=== PATIENT | male | born 1990 | race Caucasian/White ===

== ENCOUNTER 2016-11-03 17:35 | Emergency (ER) | payer OTHER ==
[2016-11-03 18:40] VITALS: BP 143/67
--- NOTE | 2016-11-03 20:22 | RAD ---
INDICATION: Left flank pain and hematuria evaluate for calculi. COMPARISON: There are no prior studies available for comparison. TECHNIQUE: A CT scan of the abdomen and pelvis was performed without intravenous or oral contrast. Contiguous axial sections were obtained from the lung bases through the symphysis pubis. Images were reconstructed in the coronal and sagittal planes. FINDINGS: The lung bases are clear. No pleural effusion is present. The liver and spleen are within normal limits in size without significant focal abnormality on this noncontrast study. No calcified gallstones are seen. The pancreas appears to be within normal limits in size. The adrenal glands and kidneys are normal in size. No renal calculi or hydronephrosis is seen. No ureteral or bladder calculi are seen. The aorta is normal in caliber without significant calcific plaque. No significant enlarged retroperitoneal lymph nodes are seen. The stomach is mildly distended with food debris. The small bowel and colon appear nondistended. The appendix is within normal limits. There is no evidence for diverticulitis or colitis. No free intraperitoneal air or fluid is seen. No significant focal osseous abnormality is seen. IMPRESSION: NO EVIDENCE FOR ACUTE FINDING OR CAUSE FOR THE PATIENT'S ABDOMINAL PAIN IS SEEN.
--- NOTE | 2016-11-03 20:36 | UC ---
Back Pain HPI - HPI Summary HPI Summary: TWO DAYS AGO BEGAN EXPERIENCING LEFT UPPER BACK PAIN, AFTER PLAYING A COMPUTER VIDEO GAME AND TWISTING BODY. NO FEVER. NO PAIN WITH URINATION. NO ABDOMINAL PAIN. NO PAIN WITH URINATION. NO RASHES. NO RECENT TRAUMA. - History of Current Complaint Chief Complaint: UCBackPain Stated Complaint: BACK PAIN Time Seen by Provider: 11/03/16 18:42 Hx Obtained From: Patient Onset/Duration: Sudden Onset, Lasting Days, Still Present Timing: Intermittent, Lasting Days Severity Initially: Moderate Severity Currently: Moderate Back Pain: Is Discrete @ - LEFT MID BACK Character: Dull, Aching, Spasmodic, Stiffness Aggravating: Movement, Lifting, Bending Alleviating: Position Associated Signs And Symptoms: Negative: Swelling, Redness, Bruising, Fever, Weakness, Numbness, Tingling, Abdominal Pain, Flank Pain, Bladder Incontinence, Bowel Incontinence, Weight Loss, Pain with Weight Bearing - Risk Factors AAA Risk Factors: Negative TAD Risk Factors: Negative Cauda Equina Risk Factors: Negative Epidural Abscess Risk Factors: Negative - Allergies/Home Medications Allergies/Adverse Reactions: Allergies Allergy/AdvReac Type Severity Reaction Status Date / Time Latex Allergy Intermediate rash/hives Verified 11/03/16 18:40 PMH/Surg Hx/FS Hx/Imm Hx Previously Healthy: Yes Respiratory History Of: Reports: Asthma - Surgical History Surgical History: Yes Surgery Procedure, Year, and Place: right hand surgery-had box fx with steel plate placed in hand - Family History Known Family History: Negative: Renal Disease - Social History Occupation: Unemployed Lives: With Family Alcohol Use: Occasionally Substance Use Type: None Smoking Status (MU): Heavy Every Day Tobacco Smoker Type: Cigarettes Amount Used/How Often: 1/2 pk daily Length of Time of Smoking/Using Tobacco: ~ 8 years Household Exposure Type: Cigarettes Cessation Counseling: Counseled 3+Min - 10 Min Review of Systems Constitutional: Negative Skin: Negative Eyes: Negative ENT: Negative Respiratory: Negative Cardiovascular: Negative Gastrointestinal: Negative Genitourinary: Negative Motor: Negative Neurovascular: Negative Musculoskeletal: Arthralgia - LEFT MID BACK PAIN, Myalgia - LEFT MID BACK PAIN Neurological: Negative Psychological: Negative All Other Systems Reviewed And Are Negative: Yes Physical Exam Triage Information Reviewed: Yes Appearance: Well-Appearing, Well-Nourished, Pain Distress - MODERATE Vital Signs: Initial Vital Signs Temp 97.9 F 11/03/16 18:36 Pulse 107 11/03/16 18:36 Resp 17 11/03/16 18:36 BP 143/67 11/03/16 18:36 Pulse Ox 98 11/03/16 18:36 Vital Signs Reviewed: Yes Eye Exam: Normal ENT Exam: Normal ENT: Positive: Normal ENT inspection, Hearing grossly normal, Pharynx normal, TMs normal Dental Exam: Normal Neck exam: Normal Neck: Positive: Supple, Nontender, No Lymphadenopathy Respiratory Exam: Normal Respiratory: Positive: Chest non-tender, Lungs clear, Normal breath sounds, No respiratory distress, No accessory muscle use Cardiovascular Exam: Normal Cardiovascular: Positive: RRR, No Murmur, Pulses Normal, Brisk Capillary Refill Abdominal Exam: Normal Abdomen Description: Positive: Nontender, No Organomegaly, Soft, CVA Tenderness (L). Negative: CVA Tenderness (R) Musculoskeletal Exam: Normal Musculoskeletal: Positive: Strength Intact, ROM Intact, No Edema, Other: - NEGATIVE STRAIGHT LEG RAISE TEST Neurological Exam: Normal Neurological: Positive: Alert, Muscle Tone Normal Psychological Exam: Normal Psychological: Positive: Normal Response To Family Skin Exam: Normal Back Pain Course/Dx - Differential Dx/Diagnosis Differential Diagnosis/HQI/PQRI: Fracture, Renal Colic, Strain, Sprain Provider Diagnoses: THORACIC LEFT BACK PAIN Discharge - Discharge Plan Condition: Stable Disposition: HOME Prescriptions: Cyclobenzaprine TAB* [Flexeril 10 MG TAB*] 10 mg PO TID PRN #12 tab PRN Reason: Spasms Patient Education Materials: Muscle Spasm (ED), Thoracic Back Strain (ED) Referrals: Vanesa Pimentel PA [Primary Care Provider] - Additional Instructions: PHYSICAL THERAPY REFERRAL: You have been prescribed physical therapy. Treatments may include stretching, exercise, application of heat or cold, and other modalities. After an injury, PT can reduce swelling and pain. In recovery, PT is used to restore mobility and strength. Your specific treatment goals are: __X___ Reduction of Swelling (EGS, US, ice as needed) __X___ Pain Reduction (EGS, US, ice as needed) ___X__ TENS Pack Fitting and Instruction Wound Hydrotherapy ___X__ Preservation of Mobility ___X__ Nondenominational of Mobility __X___ Strength Nondenominational __X___ Work or Sports Hardening This instruction sheet also serves as your PHYSICAL THERAPY REFERRAL! Please take it with you to the therapist, so he/she will be aware of your diagnosis and treatment plan. You may see the physical therapist of your choice for these treatments, but may wish to check with your insurance to be sure the provider you select is covered. It's important to see the doctor to whom you have been referred for follow up. Images Front/Back of Body, Lg (Angelina): 1 - PAIN HERE
== END 2016-11-03 20:35 | disposition home or self-care (01) ==
LOC: UCCORT 17:35
DX: M54.6 Pain in thoracic spine (principal); J45.909 Unspecified asthma, uncomplicated; F17.210 Nicotine dependence, cigarettes, uncomplicated; Z71.6 Tobacco abuse counseling
CPT/HCPCS: 74176; 81003; 99212; G0463

== ENCOUNTER 2017-11-28 11:43 | Emergency (ER) | payer OTHER ==
[2017-11-28 11:59] VITALS: BP 125/80
[2017-11-28] MEDS ORDERED: Ibuprofen ADULT LIQ* 600 MG/30 ML UDC PO ONE (12:19)
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
--- NOTE | 2017-11-28 12:30 | RAD ---
HISTORY: Trauma, foot pain, first metatarsal pain COMPARISONS: None VIEWS: 3, Frontal, lateral, and oblique views of the left foot FINDINGS: BONE DENSITY: Normal. BONES: There is no displaced fracture. JOINTS: There is no arthropathy. ALIGNMENT: There is no dislocation. SOFT TISSUES: Unremarkable. OTHER FINDINGS: None. IMPRESSION: NO ACUTE OSSEOUS INJURY. IF SYMPTOMS PERSIST, RECOMMEND REPEAT IMAGING.
== END 2017-11-28 12:58 | disposition home or self-care (01) ==
LOC: UCCORT 11:43
DX: S90.32XA Contusion of left foot, initial encounter (principal); W22.8XXA Striking against or struck by other objects, initial encounter; Y92.9 Unspecified place or not applicable; F17.210 Nicotine dependence, cigarettes, uncomplicated
CPT/HCPCS: 99213; A9270-GY; G0463

== ENCOUNTER 2018-01-02 18:17 | Emergency (ER) | payer OTHER ==
[2018-01-02 18:38] VITALS: BP 117/77
[2018-01-02] MEDS ORDERED: Ibuprofen TAB* 600 MG PO ONE (18:54)
--- NOTE | 2018-01-02 18:59 | UC ---
Throat Pain/Nasal Adonis HPI - HPI Summary HPI Summary: ONSET LAST NIGHT OF SORE THROAT, PAIN WITH SWALLOWING, FEVER TMAX 100.7, FATIGUE , CONGESTION AND BODY ACHES. - History of Current Complaint Chief Complaint: UCGeneralIllness Stated Complaint: ST,FEVER,ADONIS,ACHY Time Seen by Provider: 01/02/18 18:33 Hx Obtained From: Patient, Family/Learning Disabled Teacher - Onset/Duration: Gradual Onset, Lasting Days - 1 DAY, Still Present Severity: Moderate Pain Intensity: 6 Pain Scale Used: 0-10 Numeric Cough: None Associated Signs & Symptoms: Positive: Nasal Discharge, Fever - Allergies/Home Medications Allergies/Adverse Reactions: Allergies Allergy/AdvReac Type Severity Reaction Status Date / Time Latex, Natural Rubber Allergy Rash And Verified 11/28/17 12:01 Itching PMH/Surg Hx/FS Hx/Imm Hx Previously Healthy: Yes - Surgical History Surgical History: Yes Surgery Procedure, Year, and Place: right hand surgery-had box fx with steel plate placed in hand - Family History Known Family History: Negative: Hypertension, Renal Disease - Social History Alcohol Use: None Substance Use Type: None Smoking Status (MU): Heavy Every Day Tobacco Smoker Type: Cigarettes Amount Used/How Often: 1PPD Length of Time of Smoking/Using Tobacco: ~ 8 years Household Exposure Type: Cigarettes - Immunization History Vaccination Up to Date: Yes Review of Systems Constitutional: Fever, Chills, Fatigue ENT: Sore Throat, Ear Ache, Nasal Discharge Respiratory: Negative Cardiovascular: Negative Gastrointestinal: Negative All Other Systems Reviewed And Are Negative: Yes Physical Exam Triage Information Reviewed: Yes Appearance: No Pain Distress, Well-Nourished, Ill-Appearing - MILD Vital Signs: Initial Vital Signs Temp 100.3 F 01/02/18 18:33 Pulse 98 01/02/18 18:33 Resp 22 01/02/18 18:33 BP 117/77 01/02/18 18:33 Pulse Ox 98 01/02/18 18:33 Vital Signs Reviewed: Yes Eyes: Positive: Conjunctiva Clear ENT: Positive: Hearing grossly normal, Pharyngeal erythema, TMs normal, Tonsillar swelling, Tonsillar exudate, Hoarse voice Neck: Positive: Supple, Tenderness @ - SPFL CERVICAL LAD, LEFT > RIGHT, Enlarged Nodes @ - SPFL CERVICAL LAD, LEFT > RIGHT Respiratory Exam: Normal Cardiovascular Exam: Normal Abdomen Description: Positive: Soft Musculoskeletal: Positive: No Edema Neurological: Positive: Alert Psychological: Positive: Age Appropriate Behavior Skin: Negative: rashes Throat Pain/Nasal Course/Dx - Differential Dx/Diagnosis Provider Diagnoses: STREP PHARYNGITIS - CLINICAL DIAGNOSIS Discharge - Sign-Out/Discharge Documenting (check all that apply): Discharge/Admit/Transfer - Discharge Plan Condition: Stable Disposition: HOME Prescriptions: Amoxicillin PO (*) [Amoxicillin 500 MG CAP*] 1,000 mg PO DAILY #18 cap Magic Mouth Was-AILYN/MAAL/LIDO* 5 - 10 ml SWISH SWAL QID PRN #150 ml PRN Reason: Sore Throat Patient Education Materials: Strep Throat (ED) Referrals: Vanesa Pimentel PA [Primary Care Provider] - If Needed Additional Instructions: WILL TREAT FOR STREP BASED ON YOUR CLINICAL PRESENTATION. TAKE THE ANTIBIOTICS FOR THE FULL 10 DAYS. MAGIC MOUTHWASH NEEDED FOR DISCOMFORT. OTC CHLORASEPTIC OR CEPACOL LOZENGES AND/OR IBUPROFEN FOR SORE THROAT NEEDED ONCE SYMPTOMS RESOLVED - NEW TOOTHBRUSH DO NOT SHARE FOOD, DRINK, UTENSILS - Billing Disposition and Condition Condition: STABLE Disposition: Home
[2018-01-02] MEDS ORDERED: Amoxicillin PO (*) 500 MG CAP PO ONE (19:03)
== END 2018-01-02 19:19 | disposition home or self-care (01) ==
LOC: UCCORT 18:17
DX: J02.0 Streptococcal pharyngitis (principal); F17.210 Nicotine dependence, cigarettes, uncomplicated
CPT/HCPCS: 99212; A9270-GY; G0463